=== PATIENT | male | born 1995 | race Caucasian/White ===

== ENCOUNTER 2020-08-02 11:01 | Emergency (ER) | payer MEDICAID ==
[~2020-08-02 11:01] MED LIST: KETO10TA2 PO; LEVA15HF4 INH
[2020-08-02 11:52] VITALS: BP 111/71
== END 2020-08-02 13:29 | disposition home or self-care (01) ==
LOC: ER 11:02
DX: S93.491A Sprain of other ligament of right ankle, initial encounter (principal); M25.571 Pain in right ankle and joints of right foot; J45.909 Unspecified asthma, uncomplicated; F12.90 Cannabis use, unspecified, uncomplicated; F15.90 Other stimulant use, unspecified, uncomplicated; Z79.899 Other long term (current) drug therapy; X58.XXXA Exposure to other specified factors, initial encounter; Y93.89 Activity, other specified; Y92.89 Other specified places as the place of occurrence of the external cause; Y99.8 Other external cause status
CPT/HCPCS: 29515; 73610; 99283

== ENCOUNTER 2020-09-03 07:21 | Emergency (ER) | payer MEDICAID ==
[~2020-09-03] VITALS: Ht 180.3 cm; Wt 72.7 kg
[2020-09-03 07:25] VITALS: BP 114/77
[2020-09-03] MEDS ORDERED: ketorolac trometh. 30mg/ml inj. IM ONE (07:50)
== END 2020-09-03 08:18 | disposition home or self-care (01) ==
LOC: ER 07:22
DX: K08.89 Other specified disorders of teeth and supporting structures (principal); R22.0 Localized swelling, mass and lump, head; J45.909 Unspecified asthma, uncomplicated; F17.210 Nicotine dependence, cigarettes, uncomplicated; F12.90 Cannabis use, unspecified, uncomplicated; F15.90 Other stimulant use, unspecified, uncomplicated; Z79.899 Other long term (current) drug therapy; Z98.818 Other dental procedure status
CPT/HCPCS: 99281

== ENCOUNTER 2020-12-02 20:07 | Emergency (ER) | payer MEDICAID ==
--- NOTE | 2020-12-02 21:43 | NUR ---
NOT IN LOBBY X 3 ATTEMPTS TO CALL TO TRIAGE.
== END 2020-12-02 21:44 | disposition left against medical advice (07) ==
LOC: ER 20:07
DX: Z53.21 Procedure and treatment not carried out due to patient leaving prior to being seen by health care provider (principal)

== ENCOUNTER 2022-04-28 11:53 | Emergency (ER) | payer MEDICAID ==
[~2022-04-28] VITALS: Ht 180.3 cm; Wt 79.0 kg
[2022-04-28 12:20] VITALS: BP 114/84
[2022-04-28] MEDS ORDERED: HYDROcodone/acetaminophen 5mg/325mg tablet PO ONE (12:45)
[2022-04-28] MEDS ORDERED: sulfamethoxazole/trimethoprim DS (800/160mg) tablet PO ONE (12:45)
[2022-04-28] MEDS ORDERED: CLIN300C54 PO (12:59)
[2022-04-28] MEDS ORDERED: SULF1TAB49 PO (12:59)
[2022-04-28] MEDS ORDERED: HYDR-3965 PO (12:59)
--- NOTE | 2022-04-28 14:43 | NUR ---
Chel goyal in [facility] - 04/28/22 at 1444 by PING MD BA AWARE OF I&D COMPLETED BY MD LOUIS.
--- NOTE | 2022-04-28 14:58 | NUR ---
[facility] pharmacist called to report pt just picked up suboxone 3 days ago and he is not able to safely dispense norco's. Authorized pharmacist to not dispens norcos. Dr Conroy made aware.
== END 2022-04-28 14:44 | disposition home or self-care (01) ==
LOC: ER 11:53
DX: H66.91 Otitis media, unspecified, right ear (principal); H60.501 Unspecified acute noninfective otitis externa, right ear; F12.10 Cannabis abuse, uncomplicated; F15.10 Other stimulant abuse, uncomplicated; J45.909 Unspecified asthma, uncomplicated; Z79.899 Other long term (current) drug therapy; Z79.1 Long term (current) use of non-steroidal anti-inflammatories (NSAID)
CPT/HCPCS: 99283; A6449

== ENCOUNTER 2022-10-03 19:15 | Emergency (ER) | payer MEDICAID ==
[~2022-10-03] VITALS: Ht 180.3 cm; Wt 77.0 kg
[2022-10-03 20:16] LABS: CLARITY,URINE CLEAR (Clear); COLOR,URINE YELLOW (Yellow); GLUCOSE, URINE NEGATIVE (Neg); KETONES,URINE NEGATIVE (Neg); LEUKOCYTE ESTERASE ,URINE NEGATIVE (Neg); NITRITES, URINE NEGATIVE (Neg); OCCULT BLOOD,URINE NEGATIVE (Neg); PH,URINE 6.5 (4.8-8.0); PROTEIN,URINE NEGATIVE (Neg); UROBILINOGEN,URINE 0.2 E.U/dL (0.2-1.0)
[2022-10-03 20:17] LABS: UA COLLECTION TYPE CLN CATCH MIDSTREAM
[2022-10-03 20:21] LABS: BASOPHILS % (AUTO) 0.3 % (0-1); EOSINOPHILS # (AUTO) 0.1 X10'3 (0-0.9); EOSINOPHILS % (AUTO) 0.7 % (0-6); HEMOGLOBIN 15.4 g/dl (14.0-17.9); LYMPHOCYTES # (AUTO) 4.2 X10'3 (1.1-4.8); LYMPHOCYTES % (AUTO) 25.3 % (21-51); MEAN CORPUSCULAR HEMOGLOBIN 29.2 PG (27.0-31.0); MEAN CORPUSCULAR HGB CONC 32.8 g/dL (33.0-36.5); MEAN PLATELET VOLUME 8.1 FL (7.4-10.4); MONOCYTES # (AUTO) 1.3 X10'3 (0-0.9); MONOCYTES % (AUTO) 7.7 % (2-12); PLATELET COUNT 297 X10'3 (140-440); RED BLOOD COUNT 5.28 X10'6 (4.70-6.10); RED CELL DISTRIBUTION WIDTH 14.2 % (11.5-14.5); WHITE BLOOD COUNT 16.6 X10'3 (4.5-11.0)
[2022-10-03 20:31] LABS: ALANINE AMINOTRANSFERASE 27 U/L (12-78); ALBUMIN 3.9 G/DL (3.4-5.0); ALBUMIN/GLOBULIN RATIO 1.1 (1.1-1.5); ALKALINE PHOSPHATASE 81 IU/L (46-116); ANION GAP 8 (8-16); ASPARTATE AMINO TRANSFERASE 19 U/L (10-37); BILIRUBIN,TOTAL 0.3 MG/DL (0.1-1.0); BLOOD UREA NITROGEN 14 MG/DL (7-18); BUN/CREATININE RATIO 11.3 (10.0-20.0); CALCIUM 8.7 MG/DL (8.5-10.1); CHLORIDE 101 MMOL/L (99-107); CREATININE 1.24 MG/DL (0.60-1.10); GLUCOSE 139 MG/DL (70-104); POTASSIUM 3.4 MMOL/L (3.5-5.1); SODIUM 137 MMOL/L (135-145); TOTAL CARBON DIOXIDE 28.4 MMOL/L (24-32); TOTAL PROTEIN 7.6 G/DL (6.4-8.2); eGFR 71 ML/MIN
[2022-10-03 22:45] VITALS: TEMP 99.1
[2022-10-03] MEDS ORDERED: normal saline 1000ml 1,000 ML IV ONE (23:20)
[2022-10-03] MEDS ORDERED: LEVO-65 PO (23:25)
[2022-10-03] MEDS ORDERED: levoFLOXACIN-Levaquin 500mg/D5 100 ML IV ONE (23:25)
[2022-10-03] MEDS ORDERED: acetaminophen 325mg tablet PO ONE (23:25)
[2022-10-04 01:12] VITALS: BP 115/64; PULSE 86; RESP 14; O2SAT 99
== END 2022-10-04 01:14 | disposition home or self-care (01) ==
LOC: ER 19:15
DX: F11.10 Opioid abuse, uncomplicated (principal); R50.9 Fever, unspecified; M79.10 Myalgia, unspecified site; M54.59 Other low back pain; J45.909 Unspecified asthma, uncomplicated; F12.10 Cannabis abuse, uncomplicated; F15.10 Other stimulant abuse, uncomplicated; Z79.899 Other long term (current) drug therapy
CPT/HCPCS: 36415; 71045; 80053; 81003; 83605; 84145; 85025; 87040; 96374; 99284; J1956; J7030

== ENCOUNTER 2023-02-03 06:08 | Emergency (ER) | payer MEDICAID ==
[~2023-02-03] VITALS: Ht 180.3 cm; Wt 77.0 kg
[2023-02-03 07:37] LABS: BASOPHILS # (AUTO) 0.1 X10'3 (0-0.2); BASOPHILS % (AUTO) 0.5 % (0-1); EOSINOPHILS % (AUTO) 0.1 % (0-6); HEMATOCRIT 48.6 % (42.0-52.0); HEMOGLOBIN 16.5 g/dl (14.0-17.9); MEAN CORPUSCULAR HEMOGLOBIN 32.1 PG (27.0-31.0); MEAN CORPUSCULAR HGB CONC 33.9 g/dL (33.0-36.5); MEAN CORPUSCULAR VOLUME 94.8 FL (78-98); MEAN PLATELET VOLUME 7.8 FL (7.4-10.4); MONOCYTES # (AUTO) 1.4 X10'3 (0-0.9); MONOCYTES % (AUTO) 10.7 % (2-12); NEUTROPHILS # (AUTO) 9.3 X10'3 (1.8-7.7); NEUTROPHILS % (AUTO) 72.7 % (42-75); PLATELET COUNT 214 X10'3 (140-440); RED BLOOD COUNT 5.12 X10'6 (4.70-6.10); RED CELL DISTRIBUTION WIDTH 15.8 % (11.5-14.5); WHITE BLOOD COUNT 12.8 X10'3 (4.5-11.0)
[2023-02-03 07:54] LABS: ALANINE AMINOTRANSFERASE 42 U/L (12-78); ALBUMIN 3.8 G/DL (3.4-5.0); ALBUMIN/GLOBULIN RATIO 0.8 (1.1-1.5); ALKALINE PHOSPHATASE 99 IU/L (46-116); ANION GAP 9 (8-16); ASPARTATE AMINO TRANSFERASE 34 U/L (10-37); BILIRUBIN,TOTAL 0.2 MG/DL (0.1-1.0); BLOOD UREA NITROGEN 9 MG/DL (7-18); BUN/CREATININE RATIO 10.3 (10.0-20.0); CHLORIDE 98 MMOL/L (99-107); CREATININE 0.87 MG/DL (0.60-1.10); GLUCOSE 98 MG/DL (70-104); POTASSIUM 3.6 MMOL/L (3.5-5.1); SODIUM 136 MMOL/L (135-145); TOTAL CARBON DIOXIDE 29.5 MMOL/L (24-32); TOTAL PROTEIN 8.5 G/DL (6.4-8.2); eCRCL 138 ML/MIN; eGFR > 90 ML/MIN
[2023-02-03 10:27] VITALS: BP 133/89; PULSE 118; RESP 18; TEMP 98.4; O2SAT 0
== END 2023-02-03 10:29 | disposition home or self-care (01) ==
LOC: ER 06:09
DX: J06.9 Acute upper respiratory infection, unspecified (principal); Z20.822 Contact with and (suspected) exposure to COVID-19; F17.200 Nicotine dependence, unspecified, uncomplicated; F12.10 Cannabis abuse, uncomplicated; F15.10 Other stimulant abuse, uncomplicated; J45.909 Unspecified asthma, uncomplicated
CPT/HCPCS: 36415; 71045; 80053; 83605; 84484; 85025; 87040; 87502; 87503; 87811; 93005; 93306; 99285